=== PATIENT | female | born 1995 | race Caucasian/White ===

== ENCOUNTER 2018-08-25 02:21 | Emergency (ER) | payer MEDICAID, OTHER ==
[~2018-08-25] VITALS: Ht 157.5 cm; Wt 67.0 kg
[~2018-08-25 02:21] MED LIST: CEFD300C37 PO; GEMF600T4 PO; HYDR-3241 PO; NORG1TAB7 PO; ONDA4TAB13 SL; POLY17PO5 PO
[2018-08-25] MEDS ORDERED: ONDANSETRON 2MG/ML, 2ML ONE (02:47)
[2018-08-25 02:50] LABS: MEAN CORPUSCULAR HEMOGLOBIN 27.9 pg (27.0-34.8); MEAN CORPUSCULAR HGB CONC 32.6 g/dL (32.4-35.8); MEAN CORPUSCULAR VOLUME 85.7 fL (80-100); MEAN PLATELET VOLUME 7.3 fL (7.4-10.4); PLATELET COUNT 336 x10^3/uL (130-400); RED BLOOD COUNT 4.75 x10^6/uL (3.82-5.3); RED CELL DISTRIBUTION WIDTH 16.8 % (9.6-15.2)
[2018-08-25 02:54] LABS: ALANINE AMINOTRANSFERASE 44 U/L (12-78); ALBUMIN 3.9 g/dL (3.4-5.0); ANION GAP 12 mmol/L (5-15); CALCIUM 8.3 mg/dL (8.5-10.1); CHLORIDE 108 mmol/L (98-107); CREATININE 0.69 mg/dL (0.55-1.02)
[2018-08-25 02:59] LABS: ALKALINE PHOSPHATASE 102 U/L (45-117); BILIRUBIN,TOTAL 0.4 mg/dL (0.2-1.0); TOTAL PROTEIN 8.1 g/dL (6.4-8.2)
[2018-08-25] MEDS ORDERED: SODIUM CHLORIDE 0.9% 1,000ML IVBOLUS ONE (03:00)
[2018-08-25] MEDS ORDERED: ONDANSETRON 2MG/ML, 2ML IVPush ONE (03:00)
[2018-08-25] MEDS ORDERED: METOCLOPRAMIDE 5 MG/ML, 2ML IVPush ONE (03:00)
[2018-08-25] MEDS ORDERED: METOCLOPRAMIDE 5 MG/ML, 2ML ONE (03:02)
[2018-08-25 03:39] LABS: MD YES
[2018-08-25 03:42] LABS: <PLATELET ESTIMATE> ADEQUATE; <PLT MORPHOLOGY> NORMAL PLT MORPH; <RBC MORPHOLOGY> NORMAL; BAND#(MANUAL) 0.15 x10^3/uL; BANDS%(MANUAL) 2 % (0-7); BASOS#(MANUAL) 0.08 x10^3/uL (0-0.1); BASOS% (MANUAL) 1 % (0-1); EOS#(MANUAL) 0.15 x10^3/uL (0.0-0.4); EOS% (MANUAL) 2 % (1-7); LYMPH#(MANUAL) 4.48 x10^3/uL (1-3.4); LYMPHS% (MANUAL) 59 % (22-44); MONOS% (MANUAL) 4 % (2-9); SEG#(MANUAL) 2.43 x10^3/uL (1.8-6.8); SEGS% (MANUAL) 32 % (42-75)
[2018-08-25 04:13] VITALS: BP 97/52
== END 2018-08-25 06:14 | disposition home or self-care (01) ==
LOC: ED 02:33
DX: F10.120 Alcohol abuse with intoxication, uncomplicated (principal); R11.2 Nausea with vomiting, unspecified; F17.200 Nicotine dependence, unspecified, uncomplicated
CPT/HCPCS: 36415; 80053; 80307; 84703; 85025; 96361; 96374; 96375; 99284; J2405; J2765; J7030

== ENCOUNTER 2021-08-10 11:12 | Emergency (ER) | payer OTHER ==
[~2021-08-10] VITALS: Ht 175.3 cm; Wt 80.5 kg
[~2021-08-10 11:12] MED LIST changes: +GEMF-31 PO; -GEMF600T4 PO
[2021-08-10 11:21] VITALS: BP 148/92
--- NOTE | 2021-08-10 11:25 | NUR ---
product development technician: C-collar placed in triage
--- NOTE | 2021-08-10 14:47 | NUR ---
PT IN ROOM, LYING ON GURNEY WITH C-COLLAR STILL IN PLACE. ALL IMAGING RESULTS BACK; CHART UP FOR RECHECK.
--- NOTE | 2021-08-10 14:50 | NUR ---
ERP WAS IN TO SEE PT. C-COLLAR REMOVED BY ERP. REPORTED TO BOWEN MUHAMMAD.
--- NOTE | 2021-08-10 15:02 | NUR ---
REPORT RECEIVED FROM MARYLIN MUHAMMAD, ASSUMING CARE OF PT AT THIS TIME.
--- NOTE | 2021-08-10 15:34 | NUR ---
pt educated on dc instructions, verbalized understanding. ambulatory to dc desk with steady gait.
== END 2021-08-10 15:44 | disposition home or self-care (01) ==
LOC: ED 15:41
DX: S06.0X0A Concussion without loss of consciousness, initial encounter (principal); S00.81XA Abrasion of other part of head, initial encounter; S80.212A Abrasion, left knee, initial encounter; R41.3 Other amnesia; F17.200 Nicotine dependence, unspecified, uncomplicated; W18.30XA Fall on same level, unspecified, initial encounter; Y93.89 Activity, other specified; Y92.410 Unspecified street and highway as the place of occurrence of the external cause; Y99.8 Other external cause status
CPT/HCPCS: 70450; 70486; 72125; 99285